=== PATIENT | female | born 1955 | race African-American/Black ===

== ENCOUNTER 2022-10-12 16:21 | Inpatient (IN) | payer MEDICARE, OTHER ==
[~2022-10-12] VITALS: Ht 170.2 cm; Wt 110.8 kg
[2022-10-12] MEDS ORDERED: dilTIAZem 25 MG/5 ML VIAL IV ONE ×2 (17:00→20:00)
[2022-10-12 17:44] VITALS: PULSE 121; RESP 15; O2SAT 94
[2022-10-12 17:59] LABS: Alanine Aminotransferase 19 U/L (7-40); Albumin 4.3 g/dL (3.2-4.8); Alkaline Phosphatase 69 U/L (46-116); Anion Gap 9.8 (5-15); Aspartate Aminotransferase 22 U/L (13-40); BUN/Creatinine Ratio 20.8 (10.0-20.0); Blood Alcohol < 3.0 mg/dL (<10); Blood Urea Nitrogen 31 mg/dL (9-23); Calcium 9.6 mg/dL (8.7-10.4); Carbon Dioxide 26.2 mmol/L (20-30); Chloride 105 mmol/L (98-107); Glucose 141 mg/dL (74-106); Magnesium 1.8 mg/dL (1.6-2.6); Potassium 3.9 mmol/L (3.5-5.1); Sodium 141 mmol/L (136-145)
[2022-10-12 18:00] LABS: Bilirubin, Total 0.5 mg/dL (0.2-1.0); Total Protein 6.5 g/dL (5.7-8.2)
[2022-10-12 18:04] LABS: Basophils # (auto) 0.1 10 ^3/uL (0-0.2); Basophils % (auto) 0.7 % (0.0-2.0); Eosinophils # (auto) 0.1 10 ^3/uL (0-0.8); Eosinophils % (auto) 0.9 % (0.0-7.0); Hematocrit 40.2 % (36.0-46.0); Hemoglobin 13.4 g/dL (12.2-16.2); Lymphocytes # (auto) 3.9 10 ^3/uL (0.4-5.4); Lymphocytes % (auto) 41.1 % (10.0-50.0); Mean Corpuscular Hemoglobin 30.2 pg (28.0-32.0); Mean Corpuscular Hgb Conc. 33.4 g/dL (32.0-36.0); Mean Corpuscular Volume 90.5 fL (80.0-100.0); Monocytes # (auto) 0.3 10 ^3/uL (0-1.3); Monocytes % (auto) 3.4 % (0.0-12.0); Neutrophils # (auto) 5.2 10 ^3/uL (1.6-8.6); Neutrophils % (auto) 53.9 % (37.0-80.0); Nucleated Red Blood Cells % 0.5 %; Red Blood Cells 4.44 10^6/uL (4.0-5.20); Red Cell Distribution Width 13.5 % (11.8-14.3); White Blood Cell 9.6 10^3/uL (4.4-10.8)
[2022-10-12 19:33] VITALS: PULSE 117; RESP 18; O2SAT 95
[2022-10-12] MEDS ORDERED: ACETAMINOPHEN 325 MG TAB PO ONE (20:45)
[2022-10-12] MEDS ORDERED: ACETAMINOPHEN 325 MG TAB PO PRN (20:45)
[2022-10-12] MEDS ORDERED: NITROGLYCERIN 0.4 MG SL TAB SL PRN (20:45)
[2022-10-12] MEDS ORDERED: MORPHINE SULFATE INJ 2 MG/ml SYRG IV PRN (20:45)
[2022-10-12] MEDS ORDERED: METF-370 PO (20:49)
[2022-10-12] MEDS ORDERED: HYDR-4297 PO (20:49)
[2022-10-12] MEDS ORDERED: AMLO1TAB23 PO (20:49)
[2022-10-12] MEDS ORDERED: ATOR10TA52 PO (20:49)
[2022-10-12] MEDS ORDERED: DEXTROSE (50%) 50ML SYRG IV PRN (21:15)
[2022-10-12 21:18] LABS: Amphetamine Screen, Urine Neg (NEGATIVE); Barbiturate Scree,Urine Neg (NEGATIVE); Benzodiazephine Screen, Urine Neg (NEGATIVE); Cannabinoid Screen, Urine Pos (NEGATIVE); Cocaine Screen, Urine Neg (NEGATIVE); Opiate Scree,Urine Neg (NEGATIVE); Phencyclidine Screen, Urine Neg (NEGATIVE)
[2022-10-12 21:31] LABS: Urine Bacteria FEW /hpf (None Seen); Urine Blood Negative /uL (Negative); Urine Clarity Clear (Clear); Urine Color Yellow (Yellow); Urine Hyaline Cast FEW /lpf (0 - 2); Urine Mucus FEW (None Seen); Urine Protein, UAD TRACE (Negative); Urine Specific Gravity 1.018 (1.001-1.035); Urine WBC 4 /hpf (0 - 5); Urine pH 5.5 (5.0-8.0)
[2022-10-12] MEDS: SODIUM CHLORIDE 0.9% 1,000 ML IV SCH ×2 (21:39→22:45)
[2022-10-12] MEDS ORDERED: METOPROLOL TARTRATE 25 MG TAB PO SCH (22:00)
[2022-10-12] MEDS ORDERED: MELATONIN 5 MG TAB PO ONE (22:15)
[2022-10-12] MEDS: InsuLIN REG 1unit/0.01ml Soln (100units/ml) SC SCH (22:28)
[2022-10-12] MEDS: ACCU-CHEK COMFORT CURVE STRIP VI SCH (22:28)
[2022-10-13 06:00] LABS: Basophils # (auto) 0.1 10 ^3/uL (0-0.2); Basophils % (auto) 0.6 % (0.0-2.0); Eosinophils # (auto) 0.2 10 ^3/uL (0-0.8); Eosinophils % (auto) 1.7 % (0.0-7.0); Hematocrit 39.8 % (36.0-46.0); Hemoglobin 13.2 g/dL (12.2-16.2); Lymphocytes # (auto) 5.1 10 ^3/uL (0.4-5.4); Lymphocytes % (auto) 51.1 % (10.0-50.0); Mean Corpuscular Hemoglobin 30.3 pg (28.0-32.0); Mean Corpuscular Hgb Conc. 33.3 g/dL (32.0-36.0); Mean Corpuscular Volume 91.1 fL (80.0-100.0); Monocytes # (auto) 0.4 10 ^3/uL (0-1.3); Monocytes % (auto) 3.7 % (0.0-12.0); Neutrophils # (auto) 4.3 10 ^3/uL (1.6-8.6); Neutrophils % (auto) 42.9 % (37.0-80.0); Red Blood Cells 4.37 10^6/uL (4.0-5.20); Red Cell Distribution Width 13.5 % (11.8-14.3); White Blood Cell 10.1 10^3/uL (4.4-10.8)
[2022-10-13] MEDS: ACCU-CHEK COMFORT CURVE STRIP VI SCH ×4 (06:37→22:45)
[2022-10-13] MEDS: InsuLIN REG 1unit/0.01ml Soln (100units/ml) SC SCH ×4 (06:38→22:00)
[2022-10-13 06:47] LABS: Alanine Aminotransferase 17 U/L (7-40); Albumin 4.2 g/dL (3.2-4.8); Alkaline Phosphatase 60 U/L (46-116); Aspartate Aminotransferase 24 U/L (13-40); BUN/Creatinine Ratio 24.3 (10.0-20.0); Blood Urea Nitrogen 25 mg/dL (9-23); Calcium 9.3 mg/dL (8.5-10.1); Chloride 106 mmol/L (98-107); Cholesterol 112 mg/dL (< 200); Glucose 121 mg/dL (74-106); HDL Cholesterol 37 mg/dL (40-59); LDL Cholesterol 59 mg/dL (< 100); Sodium 144 mmol/L (136-145); Triglycerides 54 mg/dL (< 150)
[2022-10-13 06:48] LABS: Bilirubin, Total 0.6 mg/dL (0.2-1.0); Total Protein 6.7 g/dL (5.7-8.2)
[2022-10-13] MEDS ORDERED: MAGNESIUM SULFATE 1GM/100ML 100 ML IV ONE (08:00)
[2022-10-13 08:18] VITALS: PULSE 61; RESP 14; O2SAT 99
[2022-10-13] MEDS ORDERED: ASPirin 81 mg TAB PO ONE (09:30)
[2022-10-13] MEDS: PANTOPRAZOLE 40 MG TAB PO SCH (09:53)
[2022-10-13] MEDS: ATORVASTATIN 20 MG TAB PO SCH (09:53)
[2022-10-13] MEDS: amLODIPine BESYLATE 5 MG TAB PO SCH (09:56)
[2022-10-13] MEDS: METOPROLOL TARTRATE 25 MG TAB PO SCH ×2 (09:58→22:47)
[2022-10-13] MEDS: AMIODARONE HCL 200 MG TAB PO SCH ×2 (09:58→22:45)
[2022-10-13] MEDS ORDERED: ATORVASTATIN 20 MG TAB PO SCH (10:00)
[2022-10-13] MEDS ORDERED: ENOXAPARIN SOD 40 MG/0.4 ML SYRINGE SC SCH (10:00)
[2022-10-13] MEDS: ENOXAPARIN SOD 100 MG/1 ML SYRINGE SC SCH ×2 (10:32→22:45)
[2022-10-13] MEDS: SODIUM CHLORIDE 0.9% 1,000 ML IV SCH ×2 (10:36→15:53)
[2022-10-13 20:15] VITALS: PULSE 71; RESP 14; O2SAT 99
[2022-10-13 22:00] VITALS: BP 148/111; PULSE 74; RESP 18; TEMP 97.8; O2SAT 97
[2022-10-13 22:03] VITALS: BP 148/111; PULSE 83; RESP 18; TEMP 97.8; O2SAT 93; O2SAT 97
[2022-10-13] MEDS ORDERED: OLME1TAB69 PO (22:37)
[2022-10-14] VITALS (11 sets, daily range): BP systolic 115–148; BP diastolic 52–80; PULSE 56–69; RESP 11–18; TEMP 97.3–98.6; O2SAT 95–98
[2022-10-14] MEDS: SODIUM CHLORIDE 0.9% 1,000 ML IV SCH ×3 (03:45→21:45)
[2022-10-14 05:56] LABS: Anion Gap 6.8 (5-15); Carbon Dioxide 30.2 mmol/L (20-30); Chloride 107 mmol/L (98-107); Hematocrit 40.1 % (36.0-46.0); Hemoglobin 13.1 g/dL (12.2-16.2); Mean Corpuscular Hemoglobin 29.8 pg (28.0-32.0); Mean Corpuscular Hgb Conc. 32.7 g/dL (32.0-36.0); Mean Corpuscular Volume 91.4 fL (80.0-100.0); Potassium 4.6 mmol/L (3.5-5.1); Red Blood Cells 4.39 10^6/uL (4.0-5.20); Red Cell Distribution Width 13.6 % (11.8-14.3); Sodium 144 mmol/L (136-145); White Blood Cell 8.2 10^3/uL (4.4-10.8)
[2022-10-14 05:57] LABS: Calcium 9.3 mg/dL (8.5-10.1)
[2022-10-14 06:01] LABS: INR 1.13 (0.9-1.15); Partial Thromboplastin Time 38.7 SEC (24.5-34.5); Prothrombin Time 11.8 sec (9.3-11.8)
[2022-10-14 06:02] LABS: BUN/Creatinine Ratio 23.4 (10.0-20.0); Blood Urea Nitrogen 25 mg/dL (9-23); Glucose 104 mg/dL (74-106)
[2022-10-14 06:03] LABS: Magnesium 1.9 mg/dL (1.6-2.6)
[2022-10-14 06:12] LABS: Band Neutrophils % (manual) 0; Basophils % (manual) 0 (0.0-2.0); Blast Cells 0; Metamyelocytes % 0; Myelocytes % 0; Promyelocytes % 0
[2022-10-14] MEDS: InsuLIN REG 1unit/0.01ml Soln (100units/ml) SC SCH ×4 (06:40→22:00)
[2022-10-14] MEDS: ACCU-CHEK COMFORT CURVE STRIP VI SCH ×4 (06:40→22:00)
[2022-10-14 07:30] LABS: Eosinophils % (manual) 4 (0-7); Lymphocytes % (manual) 61 (10.0-50.0); Monocytes % (manual) 5 (0-12); Platelet Estimate Adequate; Reactive Lymphocytes 2
[2022-10-14] MEDS: ATORVASTATIN 20 MG TAB PO SCH (08:25)
[2022-10-14] MEDS: amLODIPine BESYLATE 5 MG TAB PO SCH (08:25)
[2022-10-14] MEDS: PANTOPRAZOLE 40 MG TAB PO SCH (08:26)
[2022-10-14] MEDS: METOPROLOL TARTRATE 25 MG TAB PO SCH ×2 (08:26→22:35)
[2022-10-14] MEDS: AMIODARONE HCL 200 MG TAB PO SCH ×2 (08:26→22:33)
[2022-10-14] MEDS: ENOXAPARIN SOD 100 MG/1 ML SYRINGE SC SCH ×2 (08:34→22:35)
[2022-10-14] MEDS ORDERED: ASPirin 81 mg TAB PO SCH (10:00)
[2022-10-14] MEDS ORDERED: LIDOCAINE 2%HCL (LOCAL ANESTH.) INJ 20ML MDV ONE (13:00)
[2022-10-14] MEDS ORDERED: fentaNYL CITRATE 100 MCG/2 ML VL ONE (13:00)
[2022-10-14] MEDS ORDERED: MIDAZOLAM HCL 2MG/2ML 2ml VIAL (1mg/ml) ONE (13:00)
[2022-10-14] MEDS ORDERED: HEPARIN SODIUM (PORCINE) 5000 UNITS/ML 1ML VIAL ONE (13:00)
[2022-10-14] MEDS ORDERED: VERAPAMIL 2.5MG/ML INJ 2ML VIAL IV ONE (13:00)
[2022-10-14] MEDS ORDERED: IODIXANOL 320MG/ML 100ML BTL IV ONE (13:17)
[2022-10-15 05:00] VITALS: BP 110/42; PULSE 65; RESP 19; TEMP 97.9; O2SAT 96
[2022-10-15 06:19] LABS: Hematocrit 38.8 % (36.0-46.0); Hemoglobin 12.8 g/dL (12.2-16.2); Mean Corpuscular Hemoglobin 29.8 pg (28.0-32.0); Mean Corpuscular Volume 90.1 fL (80.0-100.0); Red Blood Cells 4.31 10^6/uL (4.0-5.20); Red Cell Distribution Width 13.2 % (11.8-14.3); White Blood Cell 8.2 10^3/uL (4.4-10.8)
[2022-10-15 06:28] LABS: Anion Gap 4.6 (5-15); Carbon Dioxide 27.4 mmol/L (20-30); Chloride 107 mmol/L (98-107); Potassium 3.9 mmol/L (3.5-5.1); Sodium 139 mmol/L (136-145)
[2022-10-15] MEDS: InsuLIN REG 1unit/0.01ml Soln (100units/ml) SC SCH ×2 (06:31→11:30)
[2022-10-15] MEDS: ACCU-CHEK COMFORT CURVE STRIP VI SCH ×2 (06:31→11:53)
[2022-10-15 06:34] LABS: BUN/Creatinine Ratio 19.1 (10.0-20.0); Blood Urea Nitrogen 17 mg/dL (9-23); Glucose 102 mg/dL (74-106)
[2022-10-15 06:35] LABS: Band Neutrophils % (manual) 0; Basophils % (manual) 0 (0.0-2.0); Blast Cells 0; Metamyelocytes % 0; Myelocytes % 0; Promyelocytes % 0; Reactive Lymphocytes 0
[2022-10-15] MEDS: SODIUM CHLORIDE 0.9% 1,000 ML IV SCH (07:45)
[2022-10-15 08:00] VITALS: BP 129/56; PULSE 57; PULSE 58; RESP 18; TEMP 97.6; O2SAT 98
[2022-10-15 09:00] LABS: Eosinophils % (manual) 8 (0-7); Lymphocytes % (manual) 60 (10.0-50.0); Monocytes % (manual) 2 (0-12); Platelet Estimate Adequate
[2022-10-15 09:45] LABS: Hepatitis B Surface Antigen Negative (Negative)
[2022-10-15] MEDS ORDERED: APIXABAN 5 MG TAB PO SCH (10:00)
[2022-10-15] MEDS: amLODIPine BESYLATE 5 MG TAB PO SCH (10:00)
[2022-10-15 10:07] LABS: Hepatitis C Antibody Negative (Negative)
[2022-10-15] MEDS: AMIODARONE HCL 200 MG TAB PO SCH (10:34)
[2022-10-15] MEDS: ATORVASTATIN 20 MG TAB PO SCH (10:35)
[2022-10-15] MEDS: METOPROLOL TARTRATE 25 MG TAB PO SCH (10:36)
[2022-10-15] MEDS: PANTOPRAZOLE 40 MG TAB PO SCH (10:36)
[2022-10-15] MEDS ORDERED: METO25TA36 PO (10:41)
[2022-10-15] MEDS ORDERED: APIX5TAB PO (10:41)
[2022-10-15] MEDS ORDERED: AMIO200T33 PO (10:41)
[2022-10-15] MEDS ORDERED: ATOR20TA50 PO (10:41)
[2022-10-15 11:28] VITALS: BP 124/56; PULSE 57; RESP 16; TEMP 97.6; O2SAT 98
[2022-10-15 12:00] VITALS: BP 134/70; PULSE 55; RESP 16; TEMP 98; O2SAT 100
== END 2022-10-15 14:50 | disposition home or self-care (01) | DRG 280 ==
LOC: EDBD 16:21 → ER 16:21 → TELE 20:48 → TELE-EAST 10-13 21:38
PROVIDERS: ADMIT Nurse Practitioner Family; ATTEND Internal Medicine
PROC: 4A023N7 Measurement of Cardiac Sampling and Pressure, Left Heart, Percutaneous Approach (ICD-10-PCS; principal; 2022-10-14)
PROC: B211YZZ Fluoroscopy of Multiple Coronary Arteries using Other Contrast (ICD-10-PCS; 2022-10-14)
PROC: B215YZZ Fluoroscopy of Left Heart using Other Contrast (ICD-10-PCS; 2022-10-14)
DX: I21.4 Non-ST elevation (NSTEMI) myocardial infarction (principal); N17.0 Acute kidney failure with tubular necrosis; D68.69 Other thrombophilia; R55 Syncope and collapse; I10 Essential (primary) hypertension; E11.9 Type 2 diabetes mellitus without complications; E66.01 Morbid (severe) obesity due to excess calories; E78.5 Hyperlipidemia, unspecified; F10.129 Alcohol abuse with intoxication, unspecified; I25.10 Atherosclerotic heart disease of native coronary artery without angina pectoris; I48.0 Paroxysmal atrial fibrillation; Z79.01 Long term (current) use of anticoagulants; Z79.84 Long term (current) use of oral hypoglycemic drugs; Z79.899 Other long term (current) drug therapy; Z80.9 Family history of malignant neoplasm, unspecified; Z72.0 Tobacco use; Z68.38 Body mass index [BMI] 38.0-38.9, adult
CPT/HCPCS: 36415; 70450; 71045; 80048; 80053; 80061; 80307; 80320; 81001; 82550; 82962; 83036; 83735; 83880; 84443; 84484; 85007; 85025; 85027; 85610; 85730; 86803; 86850; 86900; 86901; 87340; 93005; 93306; 93458; 99152; 99291; G0378; J1815; J2250; Q9967